=== PATIENT | male | born 1940 | race Two or more races ===

== ENCOUNTER → 2017-06-27 | Emergency (ER) | payer OTHER ==
[~2017-06-27] VITALS: Ht 162.6 cm; Wt 88.9 kg
[~2017-06-27] MED LIST: ADALAT CC30 MG; CLONAZEPAM1 MG; DICLOFENAC SODI50 MG PO; FENOFIBRATE48 MG; INDOCIN50 MG; NIFE60TA3 PO; ORPH100T PO; ZANTAC15 MG/ML
== END | disposition home or self-care (01) ==
LOC: ER 10:36
DX: H92.01 Otalgia, right ear (principal)

== ENCOUNTER → 2017-07-07 | Emergency (ER) | payer OTHER ==
[~2017-07-07] VITALS: Ht 165.1 cm; Wt 88.0 kg
== END | disposition home or self-care (01) ==
LOC: ER 10:22
DX: R42 Dizziness and giddiness (principal); M54.5 Low back pain

== ENCOUNTER 2017-07-30 13:01 | Emergency (ER) | payer OTHER ==
[~2017-07-30] VITALS: Ht 165.1 cm; Wt 88.0 kg
[~2017-07-30 13:01] MED LIST changes: +LOTENSIN40 MG
== END 2017-07-30 15:41 | disposition home or self-care (01) ==
LOC: ER 13:01
DX: S40.022A Contusion of left upper arm, initial encounter (principal); I10 Essential (primary) hypertension; W18.39XA Other fall on same level, initial encounter; Y93.89 Activity, other specified; Y92.89 Other specified places as the place of occurrence of the external cause; Y99.8 Other external cause status

== ENCOUNTER 2017-08-03 11:11 | Emergency (ER) | payer OTHER ==
[~2017-08-03] VITALS: Ht 165.1 cm; Wt 88.0 kg
[2017-08-03] MEDS ORDERED: RESTORIL30 MG PO (13:59)
== END 2017-08-03 16:14 | disposition home or self-care (01) ==
LOC: ER 11:11
DX: M25.512 Pain in left shoulder (principal); M25.511 Pain in right shoulder

== ENCOUNTER 2017-08-08 12:23 | Emergency (ER) | payer OTHER ==
[~2017-08-08] VITALS: Ht 165.1 cm; Wt 88.5 kg
[~2017-08-08 12:23] MED LIST changes: +RESTORIL30 MG PO
[2017-08-08] MEDS ORDERED: KETO10TA2 PO (13:39)
[2017-08-08] MEDS ORDERED: ORPHENADRINE C100 MG PO (13:39)
== END 2017-08-08 13:41 | disposition home or self-care (01) ==
LOC: ER 12:23
DX: M79.622 Pain in left upper arm (principal)

== ENCOUNTER 2018-08-12 14:10 | Emergency (ER) | payer OTHER ==
[~2018-08-12] VITALS: Ht 165.1 cm; Wt 88.5 kg
[~2018-08-12 14:10] MED LIST changes: +KETO10TA2 PO; +ORPHENADRINE C100 MG PO
== END 2018-08-13 12:04 | disposition home or self-care (01) ==
LOC: ER 14:10 → CPU-OBS 15:44 → ER 08-13 12:04
DX: I47.1 Supraventricular tachycardia (principal); R00.2 Palpitations; Z60.2 Problems related to living alone

== ENCOUNTER 2018-09-17 18:22 | Emergency (ER) | payer OTHER ==
[~2018-09-17] VITALS: Ht 165.1 cm; Wt 93.0 kg
== END 2018-09-17 19:27 | disposition home or self-care (01) ==
LOC: ER 18:22
DX: M79.18 Myalgia, other site (principal)

== ENCOUNTER 2019-01-12 18:50 | Emergency (ER) | payer OTHER ==
[~2019-01-12] VITALS: Ht 175.3 cm; Wt 99.3 kg
== END 2019-01-12 22:55 | disposition home or self-care (01) ==
LOC: ER 18:50
DX: R42 Dizziness and giddiness (principal)

== ENCOUNTER 2019-01-15 14:50 | Emergency (ER) | payer OTHER ==
[~2019-01-15] VITALS: Ht 165.1 cm; Wt 88.5 kg
== END 2019-01-15 19:09 | disposition home or self-care (01) ==
LOC: ER 14:50
DX: R42 Dizziness and giddiness (principal); R53.1 Weakness